=== PATIENT | male | born 2000 | race Caucasian/White ===

== ENCOUNTER 2022-01-24 14:09 | Emergency (ER) | payer BC, MEDICAID, SELFPAY ==
[2022-01-24 14:10] VITALS: BP 192/86; PULSE 86; RESP 15; TEMP 36.7; O2SAT 97; BMI 22.3
--- NOTE | 2022-01-24 14:22 | RAD_ITS ---
STUDY: X-RAY - LEFT HAND, ATTENTION 4 FINGER REASON FOR EXAM: Male, 22 years old. FINGER INJURY TECHNIQUE: 4 view(s) of the finger were obtained. COMPARISON: None. FINDINGS: Normal metacarpal head. Normal metacarpophalangeal joint. Normal proximal phalanx. Normal middle phalanx. Nondisplaced avulsion fracture at the tip of the distal phalanx. Normal proximal interphalangeal joint. Normal distal interphalangeal joint. Soft tissue laceration and amputation overlying the tuft of the distal phalanx. RAD/Finger(s) Min 2 Views IMPRESSION: Nondisplaced avulsion fracture of the tip of the distal pharynx of the fourth digit with overlying soft tissue amputation. Electronically Signed: Gautam Pickett MD at 14:54 EST ,
--- NOTE | 2022-01-24 15:25 | EDS_ITS ---
HPI History of Present Illness Chief Complaint: Laceration Informant: patient Narrative Narrative: Patient is a 22-year-old male, [id number], presenting with injury to his left fourth finger. Patient was working on a hydraulic cylinder that with approximately 180 pounds. It fell off where it was sitting and landed on his finger. He has laceration to the distal aspect of his left fourth finger and is missing the distal pad of the finger. States the pain is more mild now that nothing is being done to it. Does not know when his last tetanus was. No other complaints or injuries at this time. Tetanus Immunization: Unknown [facility] Medical History no medical history Home Medications gentamicin [Gentak] 1 applic OPHTHALMIC (EYE) TID #1 opth.tube 10/19/17 [Rx Last Taken Unknown] oxycodone 5 mg PO Q6H PRN PRN #20 tablet 10/19/17 [Rx Last Taken Unknown] Allergy/AdvReac Type Severity Reaction Status Date / Time No Known Allergies Allergy Verified 01/24/22 14:12 Social History Smoking Status: Never smoker ROS ROS ED Constitutional Constitutional ED: Denies chills or fever(s) Eyes Eyes: Denies change in vision Cardiovascular Cardiovascular: Denies chest pain Respiratory/Chest Respiratory/Chest: Denies dyspnea Gastrointestinal Gastrointestinal: Denies nausea or vomiting Musculoskeletal Musculoskeletal: Reports other Details: left 4th finger injury Integumentary Reports other Details: avulsion of left 4th finger Neurologic Neurologic: Denies headache(s), paresthesias or weakness Psychiatric Psychiatric: Denies depression EXAM Physical Exam Const Vital Signs: 01/24/22 14:10 Temperature 98.1 F Temperature Source Temporal Pulse Rate 86 Respiratory Rate 15 Blood Pressure 192/86 H Blood Pressure Mean 121 Pulse Ox 97 Oxygen Delivery Method Room Air Positive well nourished and well developed General Appearance ED: well developed HEENT normocephalic and atraumatic Eyes PERRL Neck full ROM and supple Chest Wall inspection of chest normal Resp normal respiratory effort and clear to auscultation bilaterally Cardio regular rate Extremity Extremity Narrative: Normal range of motion of the left hand. Patient has partial amputation of the distal aspect of the fourth distal phalanges. There is no involvement of the proximal nail bed. The entire nail is actually still in place however there is approximately 1 cm of distal tissue/pad of the finger that is missing circumferentially. No obvious exposed bone. Neuro oriented x3, moves all extremities and no focal motor deficits Sensorium / Orientation: alert Skin Skin Narrative: Avulsion of the distal aspect of the left fourth finger. No active bleeding. MDM MDM MDM Narrative Medical decision making narrative: Patient evaluated for traumatic amputation of the distal left ring finger. There is an avulsion fracture of the tip of the distal phalanx with exposed bone. The wound is cleansed and placed in a bulky wet-to-dry dressing. Patient will require hand evaluation as there is no flap available for closure. Patient would like to go by private vehicle so we deferred IV antibiotics at this time. Patient is excepted at [facility]. Discussed with the trauma surgeon, Dr. Marin. Patient instructed to not eat or drink on the way up there. No other injuries. Patient is otherwise neurovascularly intact. Radiography X-Ray: Read by ED Physician, Read by Radiologist and - (Left hand-avulsion fracture and avulsion of the distal fourth phalanx) Diagnostic Testing: Clinical Impression(s) from Imaging Studies Finger X-Ray 01/24/22 14:22 IMPRESSION: Nondisplaced avulsion fracture of the tip of the distal pharynx of the fourth digit with overlying soft tissue amputation. Electronically Signed: Gautam Pickett MD at 14:54 EST Reading Location ID and State: [address] [place] [address] , Service support , Discharge Plan Triage Chief Complaint: Laceration ED Provider: Judith Lou Dx/Rx/DC Orders Clinical Impression: Complete traumatic amputation of ring finger through phalanx, Need for Tdap vaccination Prescriptions: No Action oxycodone 5 MG tablet 5 mg PO Q6H PRN PRN (Reason: Pain) Qty: 20 RF: 0 gentamicin [Gentak] 1 APPLIC Opth.Tube 1 applic ophthalmic (eye) TID Qty: 1 RF: 0 Primary Care Provider: Calvin Martinez Referrals: Calvin Martinez MD [Primary Care Provider] - Activity Restrictions/Additional Instructions: Go directly to [facility] ER. Do not eat anything. The trauma team will see there. Accepting physician is Dr. Marin Disposition Disposition: Acute Care Hospital Discharge Location: [facility] Discharge Date/Time: 01/24/22 16:57
[2022-01-24] MEDS: Diphth,Pertuss(Acell),Tet Vac 0.5 ML Vial IM (15:37)
[2022-01-24] MEDS: oxyCODONE 5 MG Tablet PO (15:37)
--- NOTE | 2022-01-24 15:49 | ED.RN ---
PER [facility], THEY ARE UNABLE TO TAKE THE PT BECAUSE THE HAND SURGEON HAS TOO MANY CASES.
--- NOTE | 2022-01-24 15:55 | ED.RN ---
per dr. wound cleansed with surecleans and wet to dry applied per order with adaptic and bulky drsg applied
--- NOTE | 2022-01-24 16:49 | ED.RN ---
pt to go by private car to [facility]. consent to go by private car and transferr form signed.
[2022-01-24 16:54] VITALS: BP 114/67; PULSE 68; RESP 24; TEMP 36.6; O2SAT 97
== END 2022-01-24 16:57 | disposition short-term general hospital (02) ==
PROVIDERS: Emergency Provider Emergency Medicine; PCP Pediatrics; Visit Provider Emergency Medicine
DX: S68.115A Complete traumatic metacarpophalangeal amputation of left ring finger, initial encounter (principal); Y99.0 Civilian activity done for income or pay; Z23 Encounter for immunization; W22.8XXA Striking against or struck by other objects, initial encounter
CPT/HCPCS: 73140; 90715; 99285